=== PATIENT | male | born 1955 | race Caucasian/White ===

== ENCOUNTER 2019-12-03 08:57 | Day surgery (SDC) | payer MEDICARE, OTHER ==
[~2019-12-03] VITALS: Ht 167.6 cm; Wt 78.0 kg
[~2019-12-03 08:57] MED LIST: ASPI325T57 PO; CIDA500T2 PO; GNP650TA8 PO; IBUP200C25 PO; META0.52 PO; NS 1,000 ML IV ONE; ZOCO10TA PO
[2019-12-03] MEDS ORDERED: LIDOCAINE 2% INJ 100 MG/5 ML SDV (FOR ANES.) As Ordered ONE (09:47)
[2019-12-03] MEDS ORDERED: propofoL 200 MG/20 ML VIAL As Ordered ONE ×2 (09:47→10:47)
--- NOTE | 2019-12-03 11:03 | ROOR ---
Patient Name: James Morales Procedure Date: 12/03/2019 10:34 AM Date of : 1955 Age: 64 Room: [facility] Gender: Male Note Status: Finalized Procedure: Colonoscopy Indications: Suspected hemorrhoids Providers: DO Ellie Palumbo MD: KIANNA OSWALD JR, MD Requesting Provider: Medicines: Propofol per Anesthesia Complications: No immediate complications. Procedure: Pre-Anesthesia Assessment: - Prior to the procedure, a History and Physical was performed, and patient medications and allergies were reviewed. The patient is competent. The risks and benefits of the procedure and the sedation options and risks were discussed with the patient. All questions were answered and informed consent was obtained. Patient identification and proposed procedure were verified by the physician, the nurse, the anesthesiologist and the ballistic technician in the endoscopy suite. Mental Status Examination: alert and oriented. Airway Examination: normal oropharyngeal airway and neck mobility. Respiratory Examination: clear to auscultation. CV Examination: normal. Prophylactic Antibiotics: The patient does not require prophylactic antibiotics. Prior Anticoagulants: The patient has taken no previous anticoagulant or antiplatelet agents. ASA Grade Assessment: II - A patient with mild systemic disease. After reviewing the risks and benefits, the patient was deemed in satisfactory condition to undergo the procedure. The anesthesia plan was to use monitored anesthesia care (MAC). Immediately prior to administration of medications, the patient was re-assessed for adequacy to receive sedatives. The heart rate, respiratory rate, oxygen saturations, blood pressure, adequacy of pulmonary ventilation, and response to care were monitored throughout the procedure. The physical status of the patient was re-assessed after the procedure. The Colonoscope was introduced through the anus and advanced to the cecum, identified by appendiceal orifice and ileocecal valve. The colonoscopy was performed without difficulty. The patient tolerated the procedure well. Findings: Multiple small and large-mouthed diverticula were found in the entire colon. Non-bleeding internal hemorrhoids were found during retroflexion. The hemorrhoids were mild and Grade II (internal hemorrhoids that prolapse but reduce spontaneously). Two bands were successfully placed in the rectum. A slow ooze remained at the end of the procedure. Estimated blood loss was minimal. The exam was otherwise without abnormality on direct and retroflexion views. Impression: - Diverticulosis in the entire examined colon. - Non-bleeding internal hemorrhoids. - The examination was otherwise normal on direct and retroflexion views. - Two bands were successfully placed in the rectum. - No specimens collected. Recommendation: - Patient has a contact number available for emergencies. The signs and symptoms of potential delayed complications were discussed with the patient. Return to normal activities tomorrow. Written discharge instructions were provided to the patient. - Repeat colonoscopy in 5-10 years for screening purposes. - Return to my office in 1 month. Hero Millard DO 12/03/2019 11:02:59 AM Electronically signed by Hero Millard DO Number of Addenda: 0 Note Initiated On: 12/03/2019 10:34 AM Estimated Blood Loss: Estimated blood loss was minimal.
[2019-12-03 11:25] VITALS: BP 124/83
== END 2019-12-03 11:39 | disposition home or self-care (01) ==
LOC: M OPP 08:57
PROVIDERS: ATTEND Surgery
DX: K64.1 Second degree hemorrhoids (principal); K57.30 Diverticulosis of large intestine without perforation or abscess without bleeding

== ENCOUNTER → 2021-11-14 | Outpatient (CLI) | payer MEDICARE, OTHER ==
[~2021-11-14] MED LIST changes: -NS 1,000 ML IV ONE
== END ==
LOC: M LABSMTC 11:04
PROVIDERS: ATTEND Family Medicine
DX: Z20.822 Contact with and (suspected) exposure to COVID-19 (principal); Z11.52 Encounter for screening for COVID-19
CPT/HCPCS: C9803; U0003

== ENCOUNTER 2025-02-19 09:32 | Day surgery (SDC) | payer MEDICARE, OTHER ==
[~2025-02-19] VITALS: Ht 167.6 cm; Wt 77.6 kg
[~2025-02-19 09:32] MED LIST changes: +SIMV-252 PO; -ZOCO10TA PO
[2025-02-19] MEDS ORDERED: propofoL 200 MG/20 ML VIAL As Ordered ONE (10:17)
[2025-02-19] MEDS ORDERED: LIDOCAINE 2% 100MG/5ML SDV (FOR ANES.) As Ordered ONE (10:17)
[2025-02-19 10:35] VITALS: TEMP 98.2
[2025-02-19 10:57] VITALS: BP 111/80; O2SAT 100
== END 2025-02-19 11:03 | disposition home or self-care (01) ==
LOC: M OPP 09:32
PROVIDERS: ATTEND Surgery
DX: Z12.11 Encounter for screening for malignant neoplasm of colon (principal); D12.0 Benign neoplasm of cecum; K64.1 Second degree hemorrhoids; K57.30 Diverticulosis of large intestine without perforation or abscess without bleeding; Z79.899 Other long term (current) drug therapy